=== PATIENT | female | born 1990 | race African-American/Black ===

== ENCOUNTER 2017-05-22 17:32 | Emergency (ER) | payer OTHER ==
[2017-05-22] MEDS ORDERED: ACETAMINOPHEN 160 MG/5 ML *Children Solution PO ONE (18:13)
[2017-05-22] MEDS ORDERED: FAMOTIDINE 20 MG/50 ML IVPB 20 MG/50 ML MG IVPB ONE ×2 (18:13→18:24)
[2017-05-22] MEDS ORDERED: ONDANSETRON 4 MG/2 ML VIAL IVPB ONE (18:13)
[2017-05-22] MEDS ORDERED: SODIUM CHLORIDE 1,000 ML IV STA (18:14)
[2017-05-22 18:22] VITALS: BMI 25.4
[2017-05-22] MEDS ORDERED: ACETAMINOPHEN INJECTION 100 ML IVPB ONE (18:23)
[2017-05-22] MEDS ORDERED: ACETAMINOPHEN 1000 MG/100 ML VIAL (NON FORMULARY) IVPB ONE ×2 (18:23→18:40)
--- NOTE | 2017-05-22 18:23 | PDOC ---
History of Present Illness - General Chief Complaint: Pain Stated Complaint: ABD PAIN Time Seen by Provider: 05/22/17 17:33 - History of Present Illness Initial Comments: 05/22/17 18:39 "The patient is a 27-year-old female, resident of the [facility], with a significant past medical history of down syndrome and constipation, who presents to the ED with diffuse abdominal pain, vomiting, and diarrhea that began yesterday. Pts aide states that she was complaining of abdominal pain today and vomited x2; no blood was noted. She noted that the patient was more tired than usual and did not have an appetite. Pt states that she had one episode of diarrhea yesterday. None today. She denies any recent sick contacts or recent travel. Surgical Hx: None " Past History - Past Medical History Allergies/Adverse Reactions: Allergies Allergy/AdvReac Type Severity Reaction Status Date / Time Sulfa (Sulfonamide Allergy Unknown Verified 05/22/17 17:42 Antibiotics) Home Medications: Ambulatory Orders Ammonium Lactate Cream [Lac-Hydrin 12% *Cream*] 1 applic TP BID 05/22/17 Atomoxetine HCl 40 mg PO DAILY 05/22/17 Clindamycin 1% Gel [Cleocin] 60 gm TP BID 05/22/17 Clonazepam 0.25 mg PO BID 05/22/17 Docusate Sodium [Colace] 100 mg PO BID 05/22/17 Haloperidol [Haldol -] 10 mg PO TID 05/22/17 Hydrocortisone 2.5% Lotion [Hytone 2.5% Lotion -] 1 applic TP ASDIR 05/22/17 Mometasone Furoate 30 ml TP ASDIR 05/22/17 Multivitamins [Tab-A-Vit -] 1 tab PO DAILY 05/22/17 Polyethylene Glycol 3350 [Miralax (For Daily Use) -] 17 gm PO DAILY 05/22/17 Quetiapine Fumarate [Seroquel Xr] 300 mg PO BID 05/22/17 - Immunization History Immunization Up to Date: Yes - Suicide/Smoking/Psychosocial Hx Smoking History: Never smoked Hx Alcohol Use: No Drug/Substance Use Hx: No Substance Use Type: None Review of Systems - Review of Systems Comments:: 05/22/17 18:40 "GENERAL/CONSTITUTIONAL: No fever or chills. No weakness. HEAD, EYES, EARS, NOSE AND THROAT: No change in vision. No ear pain or discharge. No sore throat. CARDIOVASCULAR: No chest pain or shortness of breath. RESPIRATORY: No cough, wheezing, or hemoptysis. GASTROINTESTINAL: +abdominal pain, nausea, vomiting, diarrhea. No constipation. GENITOURINARY: No dysuria, frequency, or change in urination. MUSCULOSKELETAL: No joint or muscle swelling or pain. No neck or back pain. SKIN: No rash NEUROLOGIC: No headache, vertigo, loss of consciousness, or change in strength/ sensation. ENDOCRINE: No increased thirst. No abnormal weight change. HEMATOLOGIC/LYMPHATIC: No anemia, easy bleeding, or history of blood clots. ALLERGIC/IMMUNOLOGIC: No hives or skin allergy. " *Physical Exam - Physical Exam Comments: 05/22/17 18:21 "GENERAL: Awake, alert, and fully oriented, in no acute distress HEAD: No signs of trauma EYES: PERRLA, EOMI, sclera anicteric, conjunctiva clear ENT: Auricles normal inspection, hearing grossly normal, nares patent, oropharynx clear without exudates. Moist mucosa NECK: Nontender, no stepoffs, Normal ROM, supple, no lymphadenopathy, JVD, or masses LUNGS: Breath sounds equal, clear to auscultation bilaterally. No wheezes, and no crackles HEART: Regular rate and rhythm, normal S1 and S2, no murmurs, rubs or gallops ABDOMEN: Soft, nontender, normoactive bowel sounds. No guarding, no rebound. No masses EXTREMITIES: Normal range of motion, no edema. No clubbing or cyanosis. No cords, erythema, or tenderness NEUROLOGICAL: Cranial nerves II through XII intact. 5/5 strength and sensation in all extremities, Normal speech, normal gait SKIN: Warm, Dry, normal turgor, no rashes or lesions noted. " Medical Decision Making - Medical Decision Making 05/22/17 18:21 27 F with yuliana DUNLAP presenting to ER with abdominal pain, vomiting, and diarrhea x 1 day. Found to be febrile in ER. Likely viral gastroenteritis. Pt with completely benign abdomen on exam, making acute intraabdominal process such as appy or shannan unlikely. - Labs, UA, UPT - IVF, tylenol, zofran, pepcid - Reassess
[2017-05-22] MEDS ORDERED: ONDANSETRON 4 MG/2 ML VIAL ONE (18:24)
[2017-05-22 18:56] LABS: BASO % 0.8 % (0-2.0); MCH 34.7 pg (25.7-33.7); MCHC 33.3 g/dl (32.0-36.0); MEAN CELL VOLUME 104.3 fl (80-96); MEAN PLT VOLUME 8.7 fl (7.5-11.1); NEUT % 89.4 % (42.8-82.8); PLATELET COUNT 184 K/MM3 (134-434); RDW 12.6 % (11.6-15.6); WHITE BLOOD COUNT 5.7 K/mm3 (4.0-10.8)
[2017-05-22 19:03] LABS: ALBUMIN 3.4 g/dl (3.5-5.0); ALK PHOS 70 U/L (32-92); ANION GAP 4 (8-16); BILIRUBIN,TOTAL 0.7 mg/dl (0.2-1.0); CALCIUM 8.5 mg/dl (8.4-10.2); CO2 25 mmol/L (22-28); CREATININE 0.9 mg/dl (0.6-1.3); GLUCOSE,RANDOM 97 mg/dl (74-106); SGOT/AST 21 U/L (10-42); SGPT/ALT 13 U/L (10-40); TOT PROT 7.3 g/dl (6.4-8.3)
--- NOTE | 2017-05-22 19:11 | PDOC ---
*Physical Exam - Vital Signs Last Vital Signs Temp Pulse Resp BP Pulse Ox 102.3 F H 104 H 17 132/66 96 05/22/17 17:32 05/22/17 17:32 05/22/17 17:32 05/22/17 17:32 05/22/17 17:32 ED Treatment Course - LABORATORY CBC & Chemistry Diagram: 05/22/17 18:35 05/22/17 18:35 - ADDITIONAL ORDERS Additional order review: Laboratory Results 05/22/17 05/22/17 18:35 18:35 Sodium 134 L Potassium 3.7 Chloride 105 Carbon Dioxide 25 Anion Gap 4 L BUN 18 Creatinine 0.9 Creat Clearance w eGFR > 60 Random Glucose 97 Calcium 8.5 Total Bilirubin 0.7 AST 21 ALT 13 Alkaline Phosphatase 70 Total Protein 7.3 Albumin 3.4 L Lipase 13 L 05/22/17 18:35 RBC 3.97 MCV 104.3 H MCHC 33.3 RDW 12.6 MPV 8.7 Neutrophils % 89.4 H Lymphocytes % 5.7 L Monocytes % 4.1 Eosinophils % 0.0 Basophils % 0.8 - Medications Given in the ED: ED Medications Discontinued Medications Generic Name Dose Route Start Last Admin Trade Name Freq PRN Reason Stop Dose Admin Acetaminophen 650 mg 05/22/17 18:13 05/22/17 18:40 Tylenol *Children Solution* - PO 05/22/17 18:14 Not Given ONCE ONE Acetaminophen 1,000 mg 05/22/17 18:23 05/22/17 18:42 Ofirmev Injection - IVPB 05/22/17 18:24 Not Given ONCE ONE Acetaminophen 1,000 mg 05/22/17 18:40 05/22/17 18:41 Ofirmev Injection - IVPB 05/22/17 18:41 1,000 mg NOW ONE Administration Famotidine/Sodium Chloride 20 mg in 50 mls @ 100 mls/hr 05/22/17 18:13 18:40 Pepcid 20 Mg Premixed Ivpb - IVPB 05/22/17 18:42 100 mls/hr ONCE ONE Administration Ondansetron HCl 4 mg 05/22/17 18:13 05/22/17 18:40 Zofran Injection IVPB 05/22/17 18:14 4 mg ONCE ONE Administration Progress Note - Progress Note Progress Note: Care of this patient was transferred to ar from Dr. MACDONALD at 1900 hrs. Patient is a developmentally disabled 27-year-old female who [facility]. Patient has a history significant for fecal impaction in the past. Patient here in the emergency room was noted to have a fever 102.4. Patient abdominal exam as per Dr. gardner was completely normal nontender. Patient labs are pending at this point. Plan is to hydrate patient once her urine test is back in a flat and upright to rule out constipation. Repeat abdominal exam. Patient has a nontender benign abdominal exam. Patient is refusing flat and upright of her abdomen. In talking with patient's caregiver from the jail patient has a history of similar symptoms in the past secondary to constipation. Patient has not been given anything for the constipation. Patient does have a doctor that she can follow-up with the jail regarding her constipation. Patient's labs are all normal including a normal white count and no left shift patient's MCV is slightly elevated. Patient's caregiver given copies of the patient's labs. Patient's chemistries are normal. Patient discharged back to the jail with her caregiver and told to follow- up with the physician for the jail to address her constipation issues. *DC/Admit/Observation/Transfer Diagnosis at time of Disposition: Constipation Qualifiers: Constipation type: unspecified constipation type Qualified Code(s): K59.00 - Constipation, unspecified Fever Qualifiers: Fever type: unspecified Qualified Code(s): R50.9 - Fever, unspecified - Discharge Dispostion Disposition: HOME Admit: No - Referrals - Patient Instructions Additional Instructions: It is important that patient be followed up tomorrow by her doctor at the jail for further evaluation if no bowel movement by tomorrow. Return to the emergency department immediately with ANY new, persistent or worsening symptoms. Continue any medications as previously prescribed by your physician. You should follow up with your primary doctor as soon as possible regarding today's emergency department visit. . Please make sure your doctor reviews the results of your emergency evaluation. Thank you for coming to the Emergency Department today for your care. It was a pleasure to see you today. Please note that your evaluation is INCOMPLETE until you follow-up with your doctor. - Post Discharge Activity
[2017-05-22 19:40] LABS: PH,URINE 5.5 (4.5-8); URINE APPEARANCE Clear; URINE BILIRUBIN Negative (NEGATIVE); URINE BLOOD Negative (NEGATIVE); URINE COLOR YELLOW; URINE GLUCOSE (UA) Negative (NEGATIVE); URINE KETONE Trace (NEGATIVE); URINE LEUK ESTERASE Negative (NEGATIVE); URINE NITRITE Negative (NEGATIVE); URINE PROTEIN Negative (NEGATIVE); URINE UROBILINOGEN 0.2 (0.2-1.0)
[2017-05-22 20:45] VITALS: BP 100/70; PULSE 70; TEMP 98.6
== END 2017-05-22 20:50 | disposition home or self-care (01) ==
LOC: FER 17:32
PROC: 3E033GC Introduction of Other Therapeutic Substance into Peripheral Vein, Percutaneous Approach (ICD-10-PCS; principal; 2017-05-22)
PROC: 3E033NZ Introduction of Analgesics, Hypnotics, Sedatives into Peripheral Vein, Percutaneous Approach (ICD-10-PCS; 2017-05-22)
PROC: 3E0337Z Introduction of Electrolytic and Water Balance Substance into Peripheral Vein, Percutaneous Approach (ICD-10-PCS; 2017-05-22)
DX: K59.00 Constipation, unspecified (principal); R50.9 Fever, unspecified
CPT/HCPCS: 36415; 80053; 81003; 83690; 84703; 85025; 99283-25